=== PATIENT | male | born 1985 | race Caucasian/White ===

== ENCOUNTER 2018-01-18 01:18 | Emergency (ER) | payer OTHER ==
[2018-01-18] MEDS: AMPICILLIN SOD/SULBACTAM SOD 3 GM in D5W MINI-BAG PLUS 100 ML IV (02:30)
== END 2018-01-18 03:48 | disposition home or self-care (01) ==
LOC: M ED 01:18
DX: S51.852A Open bite of left forearm, initial encounter (principal); W54.0XXA Bitten by dog, initial encounter; Y92.89 Other specified places as the place of occurrence of the external cause; F17.210 Nicotine dependence, cigarettes, uncomplicated; F11.21 Opioid dependence, in remission
CPT/HCPCS: 96374

== ENCOUNTER → 2018-02-23 | Outpatient (CLI) | payer MEDICAID, MEDICARE | LOC: M OUTALCOH 07:53 | DX: F11.20 Opioid dependence, uncomplicated (principal) | CPT/HCPCS: H0001 ==

== ENCOUNTER 2018-03-07 12:52 | Outpatient (RCR) | payer MEDICAID | END 2018-03-21 | LOC: M OUTALCOH 12:52 | DX: F11.20 Opioid dependence, uncomplicated (principal); Z72.0 Tobacco use ==

== ENCOUNTER 2018-03-23 10:15 | Outpatient (RCR) | payer MEDICAID | END 2018-04-21 | LOC: M OUTALCOH 10:15 | DX: F11.20 Opioid dependence, uncomplicated (principal); Z72.0 Tobacco use ==

== ENCOUNTER → 2018-03-30 | Outpatient (REF) | payer MEDICAID | LOC: M LAB REF 09:27 | DX: F11.21 Opioid dependence, in remission (principal) ==

== ENCOUNTER → 2019-01-17 | Outpatient (REF) | payer MEDICAID ==
[~2019-01-17] MED LIST: AUGM500T34 PO
[2019-01-17 17:47] LABS: AMORPHOUS SEDIMENT SMALL (NEGATIVE); APPEARANCE, URINE CLEAR (CLEAR); BACTERIA, URINE AUTO NEGATIVE (NEGATIVE); BILIRUBIN, URINE AUTO NEGATIVE (NEGATIVE); BLOOD, URINE BLOOD NEGATIVE (NEGATIVE); COLOR, URINE YELLOW (YELLOW); GLUCOSE, URINE (UA) AUTO NEGATIVE (NEGATIVE); KETONE, URINE AUTO NEGATIVE (NEGATIVE); LEUKOCYTE ESTERASE, URINE AUTO NEGATIVE (NEGATIVE); MUCUS, URINE SMALL (NEGATIVE); NITRITE, URINE AUTO NEGATIVE (NEGATIVE); PROTEIN, URINE AUTO NEGATIVE (NEGATIVE); RBC, URINE AUTO 2 /HPF (0-3); SPECIFIC GRAVITY URINE AUTO 1.011 (1.002-1.035); SQUAMOUS EPITHELIAL CELL UR AU 0 /HPF (0-6); UROBILINOGEN, URINE AUTO 0.2 mg/dL (0.0-2.0); WBC, URINE AUTO 1 /HPF (0-3)
[2019-01-17 18:36] LABS: BASO % 0.5 % (0.0-1.0); EOS # 0.1 10^3/uL (0.0-0.50); EOS % 1.7 % (0.0-3.0); HEMATOCRIT 43.1 % (42.0-52.0); LYMPH # 2.9 10^3/uL (1.5-4.5); LYMPH % 43.6 % (24.0-44.0); MEAN CORPUSCULAR HGB CONC 32.5 g/dl (32.0-36.5); MEAN CORPUSCULAR VOLUME 95.6 fl (80.0-96.0); MONO # 0.5 10^3/uL (0.0-0.8); MONO % 7.3 % (0.0-5.0); NEUTROPHILS # 3.1 10^3/uL (1.8-7.7); NEUTROPHILS % 46.6 % (36.0-66.0); PLATELET COUNT, AUTOMATED 327 10^3/uL (150-450); RED BLOOD COUNT 4.51 10^6/uL (4.30-6.10); WHITE BLOOD COUNT 6.6 10^3/uL (4.0-10.0)
[2019-01-17 18:48] LABS: ALBUMIN 4.2 GM/DL (3.2-5.2); ALT/SGPT 36 U/L (12-78); BILIRUBIN,TOTAL 0.4 MG/DL (0.2-1.0); BLOOD UREA NITROGEN 8 MG/DL (7-18); CALCIUM LEVEL 9.1 MG/DL (8.5-10.1); CARBON DIOXIDE LEVEL 31 MEQ/L (21-32); CHLORIDE LEVEL 103 MEQ/L (98-107); CHOLESTEROL LEVEL 150 MG/DL (<200); CHOLESTEROL RISK RATIO 4.166 (<5); CREATININE FOR GFR 0.89 MG/DL (0.70-1.30); FREE T4 0.95 NG/DL (0.76-1.46); GLOMERULAR FILTRATION RATE > 60.0 (>60); GLUCOSE, FASTING 72 MG/DL (70-100); HDL CHOLESTEROL 36 MG/DL (>40); LDL CHOLESTEROL 76 MG/DL (<100); NON-HDL-C 114 MG/DL; POTASSIUM SERUM 4.2 MEQ/L (3.5-5.1); SODIUM LEVEL 139 MEQ/L (136-145); TOTAL PROTEIN 7.7 GM/DL (6.4-8.2); TRIGLYCERIDES LEVEL 188 MG/DL (<150)
[2019-01-17 19:19] LABS: HEMOGLOBIN A1c 5.4 %
[2019-01-18 09:15] LABS: TOTAL 25(OH) VITAMIN D 14.8 NG/ML (30.0-100.0)
[2019-01-18 09:16] LABS: HEPATITIS B SURFACE ANTIBODY POSITIVE (POSITIVE)
[2019-01-18 09:26] LABS: HEPATITIS B SURFACE ANTIGEN NEGATIVE (NEGATIVE)
[2019-01-18 09:55] LABS: HIV 1&2 SCREEN CENTAUR NEGATIVE (NEGATIVE)
[2019-01-19 08:33] LABS: HEPATITIS A IgG TOTAL Negative (Negative); HEPATITIS B CORE ANTIBODY IGG Negative (Negative)
[2019-01-20 00:07] LABS: Lyme Disease IgG/IgM Antibodie <0.91 ISR (0.00-0.90); Lyme Disease IgM Ab Quantitati <0.80 index (0.00-0.79)
[2019-01-24 00:06] LABS: HEPATITIS C QUANTITATION 7830 IU/mL (.); HEPATITIS C VIRUS GENOTYPE 1a (.)
== END ==
LOC: M LAB REF 16:48
PROVIDERS: ATTEND Family Medicine
DX: B17.10 Acute hepatitis C without hepatic coma (principal); Z00.01 Encounter for general adult medical examination with abnormal findings

== ENCOUNTER → 2019-02-01 | Outpatient (CLI) | payer OTHER, MEDICAID ==
[2019-02-01 08:31] LABS: HEMATOCRIT 40.3 % (42.0-52.0); HEMOGLOBIN 13.4 g/dl (13.5-17.5); MEAN CORPUSCULAR HGB CONC 33.3 g/dl (32.0-36.5); MEAN CORPUSCULAR VOLUME 93.3 fl (80.0-96.0); PLATELET COUNT, AUTOMATED 300 10^3/uL (150-450); RED BLOOD COUNT 4.32 10^6/uL (4.30-6.10); WHITE BLOOD COUNT 6.5 10^3/uL (4.0-10.0)
[2019-02-01 09:01] LABS: ALBUMIN 3.9 GM/DL (3.2-5.2); ALT/SGPT 57 U/L (12-78); BILIRUBIN,TOTAL 0.3 MG/DL (0.2-1.0); BLOOD UREA NITROGEN 8 MG/DL (7-18); CALCIUM LEVEL 9.2 MG/DL (8.5-10.1); CARBON DIOXIDE LEVEL 31 MEQ/L (21-32); CHLORIDE LEVEL 106 MEQ/L (98-107); GLOMERULAR FILTRATION RATE > 60.0 (>60); GLUCOSE, FASTING 89 MG/DL (70-100); POTASSIUM SERUM 4.9 MEQ/L (3.5-5.1); SODIUM LEVEL 140 MEQ/L (136-145); TOTAL PROTEIN 7.1 GM/DL (6.4-8.2)
[2019-02-01 09:37] LABS: HEPATITIS B SURFACE ANTIGEN NEGATIVE (NEGATIVE)
[2019-02-01 10:05] LABS: HIV 1&2 SCREEN CENTAUR NEGATIVE (NEGATIVE)
[2019-02-01 10:10] LABS: HEPATITIS C VIRUS ABY INDEX > 11.0 INDEX (<0.8)
[2019-02-01 10:56] LABS: CHLAMYDIA DNA AMPLIFICATION NEGATIVE (NEGATIVE); GC DNA AMPLIFICATION NEGATIVE (NEGATIVE)
--- NOTE | 2019-02-01 17:39 | ECGEPIP ---
Stationary ECG Study [facility] Test Date: 2019-02-01 Pat Name: DIDI CARRIZALES Department: Room: - Gender: M Compliance Review Specialist: : [id number] Requested By: Raymond Medrano Order Number: [id number] Reading MD: Omero Phan Measurements Intervals [place] Rate: 59 P: 61 RI: 172 QRS: 56 QRSD: 93 T: 42 QT: 414 QTc: 411 Interpretive Statements Sinus bradycardia Normal EKG Comparison tracing not available Electronically Signed On 02-01-2019 17:39:07 EDT by Omero Phan
== END ==
LOC: M LAB 07:46
PROVIDERS: ATTEND Family Medicine
DX: F11.20 Opioid dependence, uncomplicated (principal)

== ENCOUNTER → 2019-02-01 | Outpatient (CLI) | payer OTHER ==
--- NOTE | 2019-02-01 07:59 | REP ---
Clinical: Hepatitis C. Technique: Real time penny scale ultrasound examination using curved array transducer. Findings: The liver demonstrates coarsened echotexture consistent with hepatocellular disease, but no focal hepatic lesion identified. Pancreas is incompletely evaluated due to interposed bowel gas but visualized portions appear normal. A peripancreatic lymph node is identified measuring 13 mm. Gallbladder is normal and without gallstones, wall thickening, or pericholecystic fluid. No biliary ductal dilatation is appreciated and the common bile duct measures 5.7 mm diameter. The right kidney is normal in reniform shape and measures 10.9 x 6.4 x 4.2 cm. No ascites. Impression: 1. Findings consistent with hepatocellular disease. No focal hepatic lesion identified. Electronically Signed by Jagjit Nina MD 02/01/2019 07:50 A
== END ==
LOC: M RAD 07:08
PROVIDERS: ATTEND Internal Medicine
DX: Z00.01 Encounter for general adult medical examination with abnormal findings (principal); B19.20 Unspecified viral hepatitis C without hepatic coma

== ENCOUNTER → 2019-05-09 | Outpatient (REF) | payer OTHER, MEDICAID ==
[2019-05-12 00:08] LABS: HEPATITIS C QUANTITATION HCV Not Detected IU/mL (.)
== END ==
LOC: M LAB REF 17:22
PROVIDERS: ATTEND Nurse Practitioner Adult Health
DX: Z86.19 Personal history of other infectious and parasitic diseases (principal)

== ENCOUNTER → 2020-10-03 | Outpatient (CLI) | payer MEDICAID | LOC: M OUTALCOH 07:35 | PROVIDERS: ATTEND Psychiatry & Neurology Addiction Medicine | DX: Z13.39 Encounter for screening examination for other mental health and behavioral disorders (principal); F11.20 Opioid dependence, uncomplicated ==

== ENCOUNTER → 2020-10-21 | Outpatient (RCR) | payer MEDICAID | LOC: M OUTALCOH 10-07 14:31 | PROVIDERS: ATTEND Psychiatry & Neurology Addiction Medicine | DX: F11.20 Opioid dependence, uncomplicated (principal); F15.20 Other stimulant dependence, uncomplicated; Z72.0 Tobacco use ==

== ENCOUNTER 2020-11-20 13:00 | Outpatient (RCR) | payer MEDICAID | END 2020-11-21 | LOC: M OUTALCOH 13:00 | PROVIDERS: ATTEND Psychiatry & Neurology Addiction Medicine | DX: F11.20 Opioid dependence, uncomplicated (principal); F15.20 Other stimulant dependence, uncomplicated; Z72.0 Tobacco use ==

== ENCOUNTER 2020-12-18 11:20 | Outpatient (RCR) | payer MEDICAID | END 2020-12-22 | LOC: M OUTALCOH 11:20 | PROVIDERS: ATTEND Psychiatry & Neurology Addiction Medicine | DX: F11.20 Opioid dependence, uncomplicated (principal); F15.20 Other stimulant dependence, uncomplicated; Z72.0 Tobacco use ==

== ENCOUNTER 2021-01-15 14:00 | Outpatient (RCR) | payer MEDICAID | END 2021-01-19 | LOC: M OUTALCOH 14:00 | PROVIDERS: ATTEND Psychiatry & Neurology Addiction Medicine | DX: F11.20 Opioid dependence, uncomplicated (principal); F15.20 Other stimulant dependence, uncomplicated; Z72.0 Tobacco use ==

== ENCOUNTER 2021-02-12 10:33 | Outpatient (RCR) | payer MEDICAID | END 2021-02-19 | LOC: M OUTALCOH 10:33 | PROVIDERS: ATTEND Psychiatry & Neurology Psychiatry | DX: F11.20 Opioid dependence, uncomplicated (principal); F15.20 Other stimulant dependence, uncomplicated; Z72.0 Tobacco use ==

== ENCOUNTER → 2021-03-21 | Outpatient (RCR) | payer MEDICAID | LOC: M OUTALCOH 02-26 02:00 | PROVIDERS: ATTEND Psychiatry & Neurology Psychiatry | DX: F11.20 Opioid dependence, uncomplicated (principal); F15.20 Other stimulant dependence, uncomplicated; Z72.0 Tobacco use ==

== ENCOUNTER 2021-04-18 13:25 | Outpatient (RCR) | payer MEDICAID | END 2021-04-21 | LOC: M OUTALCOH 13:25 | PROVIDERS: ATTEND Psychiatry & Neurology Psychiatry | DX: F11.20 Opioid dependence, uncomplicated (principal); F15.20 Other stimulant dependence, uncomplicated ==

== ENCOUNTER 2021-05-19 13:00 | Outpatient (RCR) | payer MEDICAID | END 2021-05-21 | LOC: M OUTALCOH 13:00 | PROVIDERS: ATTEND Psychiatry & Neurology Psychiatry | DX: F11.20 Opioid dependence, uncomplicated (principal); F15.20 Other stimulant dependence, uncomplicated ==

== ENCOUNTER 2021-06-20 13:10 | Outpatient (RCR) | payer MEDICAID | END 2021-06-21 | LOC: M OUTALCOH 13:10 | PROVIDERS: ATTEND Psychiatry & Neurology Psychiatry | DX: F11.20 Opioid dependence, uncomplicated (principal); F15.20 Other stimulant dependence, uncomplicated; Z72.0 Tobacco use ==

== ENCOUNTER 2021-07-21 13:00 | Outpatient (RCR) | payer MEDICAID | END 2021-07-22 | LOC: M OUTALCOH 13:00 | PROVIDERS: ATTEND Psychiatry & Neurology Psychiatry | DX: F11.20 Opioid dependence, uncomplicated (principal); F15.20 Other stimulant dependence, uncomplicated; Z72.0 Tobacco use ==

== ENCOUNTER 2021-08-18 14:41 | Outpatient (RCR) | payer MEDICAID | END 2021-08-21 | LOC: M OUTALCOH 14:41 | PROVIDERS: ATTEND Psychiatry & Neurology Psychiatry | DX: F11.20 Opioid dependence, uncomplicated (principal); F15.20 Other stimulant dependence, uncomplicated; Z72.0 Tobacco use ==

== ENCOUNTER 2021-09-17 10:45 | Outpatient (RCR) | payer MEDICAID | END 2021-09-21 | LOC: M OUTALCOH 10:45 | PROVIDERS: ATTEND Psychiatry & Neurology Psychiatry | DX: F11.20 Opioid dependence, uncomplicated (principal); F15.20 Other stimulant dependence, uncomplicated; Z72.0 Tobacco use ==

== ENCOUNTER 2021-10-03 08:00 | Outpatient (RCR) | payer MEDICAID | END 2021-10-21 | LOC: M OUTALCOH 08:00 | PROVIDERS: ATTEND Psychiatry & Neurology Psychiatry | DX: F11.20 Opioid dependence, uncomplicated (principal); F15.20 Other stimulant dependence, uncomplicated; Z72.0 Tobacco use ==

== ENCOUNTER 2021-12-01 14:56 | Outpatient (RCR) | payer MEDICAID | END 2021-12-22 | LOC: M OUTALCOH 14:56 | PROVIDERS: ATTEND Psychiatry & Neurology Psychiatry | DX: F11.20 Opioid dependence, uncomplicated (principal); F15.20 Other stimulant dependence, uncomplicated; Z72.0 Tobacco use ==

== ENCOUNTER 2022-01-26 12:54 | Outpatient (RCR) | payer MEDICAID | END 2022-02-19 | LOC: M OUTALCOH 12:54 | PROVIDERS: ATTEND Psychiatry & Neurology Psychiatry | DX: F11.21 Opioid dependence, in remission (principal); F15.21 Other stimulant dependence, in remission; Z72.0 Tobacco use ==

== ENCOUNTER 2022-03-23 13:09 | Outpatient (RCR) | payer MEDICAID | END 2022-04-21 | LOC: M OUTALCOH 13:09 | PROVIDERS: ATTEND Psychiatry & Neurology Psychiatry | DX: F11.21 Opioid dependence, in remission (principal); F15.21 Other stimulant dependence, in remission; Z72.0 Tobacco use ==

== ENCOUNTER 2022-03-23 14:10 | Outpatient (RCR) | payer MEDICAID | END 2022-04-21 | LOC: M OUTALCOH 14:10 | PROVIDERS: ATTEND Psychiatry & Neurology Psychiatry | DX: F11.21 Opioid dependence, in remission (principal); F15.21 Other stimulant dependence, in remission; Z72.0 Tobacco use ==

== ENCOUNTER 2022-04-27 12:46 | Outpatient (RCR) | payer MEDICAID | END 2022-05-21 | LOC: M OUTALCOH 12:46 | PROVIDERS: ATTEND Psychiatry & Neurology Psychiatry | DX: F11.21 Opioid dependence, in remission (principal); F15.21 Other stimulant dependence, in remission; Z72.0 Tobacco use ==

== ENCOUNTER 2022-06-10 12:59 | Outpatient (RCR) | payer MEDICAID | END 2022-06-21 | LOC: M OUTALCOH 12:59 | PROVIDERS: ATTEND Psychiatry & Neurology Psychiatry | DX: F11.21 Opioid dependence, in remission (principal); F15.21 Other stimulant dependence, in remission; Z72.0 Tobacco use ==

== ENCOUNTER 2022-08-06 13:00 | Outpatient (RCR) | payer MEDICAID | END 2022-08-21 | LOC: M OUTALCOH 13:00 | PROVIDERS: ATTEND Psychiatry & Neurology Psychiatry | DX: F11.20 Opioid dependence, uncomplicated (principal); F15.20 Other stimulant dependence, uncomplicated; Z72.0 Tobacco use ==

== ENCOUNTER 2022-09-17 14:09 | Outpatient (RCR) | payer MEDICAID | END 2022-09-21 | LOC: M OUTALCOH 14:09 | PROVIDERS: ATTEND Psychiatry & Neurology Psychiatry | DX: F11.20 Opioid dependence, uncomplicated (principal); F15.20 Other stimulant dependence, uncomplicated; Z72.0 Tobacco use ==

== ENCOUNTER 2022-10-08 13:02 | Outpatient (RCR) | payer MEDICAID | END 2022-10-21 | LOC: M OUTALCOH 13:02 | PROVIDERS: ATTEND Psychiatry & Neurology Psychiatry | DX: F11.21 Opioid dependence, in remission (principal); F15.21 Other stimulant dependence, in remission; Z72.0 Tobacco use ==

== ENCOUNTER 2022-10-29 14:45 | Outpatient (RCR) | payer MEDICAID | END 2022-11-21 | LOC: M OUTALCOH 14:45 | PROVIDERS: ATTEND Psychiatry & Neurology Psychiatry | DX: F11.21 Opioid dependence, in remission (principal); F15.21 Other stimulant dependence, in remission; Z72.0 Tobacco use ==

== ENCOUNTER 2022-12-10 14:53 | Outpatient (RCR) | payer MEDICAID | END 2022-12-22 | LOC: M OUTALCOH 14:53 | PROVIDERS: ATTEND Psychiatry & Neurology Psychiatry | DX: F11.21 Opioid dependence, in remission (principal); F15.21 Other stimulant dependence, in remission; Z72.0 Tobacco use ==

== ENCOUNTER 2023-02-04 10:58 | Outpatient (RCR) | payer MEDICAID | END 2023-02-19 | LOC: M OUTALCOH 10:58 | PROVIDERS: ATTEND Internal Medicine | DX: F11.21 Opioid dependence, in remission (principal); F15.21 Other stimulant dependence, in remission; Z72.0 Tobacco use ==

== ENCOUNTER 2023-03-04 10:52 | Outpatient (RCR) | payer MEDICAID | END 2023-03-21 | LOC: M OUTALCOH 10:52 | PROVIDERS: ATTEND Internal Medicine | DX: F11.21 Opioid dependence, in remission (principal); F15.21 Other stimulant dependence, in remission; Z72.0 Tobacco use ==

== ENCOUNTER 2023-05-06 13:42 | Outpatient (RCR) | payer MEDICAID | END 2023-05-21 | LOC: M OUTALCOH 13:42 | PROVIDERS: ATTEND Psychiatry & Neurology Psychiatry | DX: F11.21 Opioid dependence, in remission (principal); F15.21 Other stimulant dependence, in remission; Z72.0 Tobacco use ==

== ENCOUNTER 2023-06-03 12:08 | Outpatient (RCR) | payer MEDICAID | END 2023-06-21 | LOC: M OUTALCOH 12:08 | PROVIDERS: ATTEND Psychiatry & Neurology Psychiatry | DX: F11.21 Opioid dependence, in remission (principal); F15.21 Other stimulant dependence, in remission; Z72.0 Tobacco use ==

== ENCOUNTER 2023-07-05 08:49 | Outpatient (RCR) | payer MEDICAID | END 2023-07-22 | LOC: M OUTALCOH 08:49 | PROVIDERS: ATTEND Psychiatry & Neurology Psychiatry | DX: F11.20 Opioid dependence, uncomplicated (principal); F15.20 Other stimulant dependence, uncomplicated; Z72.0 Tobacco use ==

== ENCOUNTER 2023-09-27 10:19 | Outpatient (RCR) | payer MEDICAID | END 2023-10-21 | LOC: M OUTALCOH 10:19 | PROVIDERS: ATTEND Psychiatry & Neurology Child & Adolescent Psychiatry | DX: F11.20 Opioid dependence, uncomplicated (principal); F15.20 Other stimulant dependence, uncomplicated; Z72.0 Tobacco use ==

== ENCOUNTER 2023-11-09 09:30 | Outpatient (RCR) | payer MEDICAID | END 2023-11-21 | LOC: M OUTALCOH 09:30 | PROVIDERS: ATTEND Psychiatry & Neurology Child & Adolescent Psychiatry | DX: F11.20 Opioid dependence, uncomplicated (principal); F15.20 Other stimulant dependence, uncomplicated; Z72.0 Tobacco use ==

== ENCOUNTER 2023-12-21 09:26 | Outpatient (RCR) | payer MEDICAID | END 2023-12-22 | LOC: M OUTALCOH 09:26 | PROVIDERS: ATTEND Psychiatry & Neurology Child & Adolescent Psychiatry | DX: F11.20 Opioid dependence, uncomplicated (principal); F15.20 Other stimulant dependence, uncomplicated; Z72.0 Tobacco use ==

== ENCOUNTER 2023-12-27 08:51 | Outpatient (RCR) | payer MEDICAID | END 2024-01-20 | LOC: M OUTALCOH 08:51 | PROVIDERS: ATTEND Psychiatry & Neurology Child & Adolescent Psychiatry | DX: F11.20 Opioid dependence, uncomplicated (principal); F15.20 Other stimulant dependence, uncomplicated; Z72.0 Tobacco use ==

== ENCOUNTER 2024-01-24 08:48 | Outpatient (RCR) | payer MEDICAID | END 2024-02-20 | LOC: M OUTALCOH 08:48 | PROVIDERS: ATTEND Psychiatry & Neurology Child & Adolescent Psychiatry | DX: F11.20 Opioid dependence, uncomplicated (principal); F15.20 Other stimulant dependence, uncomplicated; Z72.0 Tobacco use ==

== ENCOUNTER 2024-02-21 09:26 | Outpatient (RCR) | payer MEDICAID | END 2024-03-21 | LOC: M OUTALCOH 09:26 | PROVIDERS: ATTEND Psychiatry & Neurology Psychiatry | DX: F11.20 Opioid dependence, uncomplicated (principal); F15.20 Other stimulant dependence, uncomplicated; Z72.0 Tobacco use ==

== ENCOUNTER 2024-03-27 09:53 | Outpatient (RCR) | payer MEDICAID | END 2024-04-21 | LOC: M OUTALCOH 09:53 | PROVIDERS: ATTEND Psychiatry & Neurology Child & Adolescent Psychiatry | DX: F11.20 Opioid dependence, uncomplicated (principal); F15.20 Other stimulant dependence, uncomplicated; Z72.0 Tobacco use ==

== ENCOUNTER 2024-05-08 08:45 | Outpatient (RCR) | payer MEDICAID | END 2024-05-21 | LOC: M OUTALCOH 08:45 | PROVIDERS: ATTEND Psychiatry & Neurology Psychiatry | DX: F11.20 Opioid dependence, uncomplicated (principal); F15.20 Other stimulant dependence, uncomplicated; Z72.0 Tobacco use ==

== ENCOUNTER 2024-06-05 09:27 | Outpatient (RCR) | payer MEDICAID | END 2024-06-21 | LOC: M OUTALCOH 09:27 | PROVIDERS: ATTEND Psychiatry & Neurology Child & Adolescent Psychiatry | DX: F11.20 Opioid dependence, uncomplicated (principal); F15.20 Other stimulant dependence, uncomplicated; Z72.0 Tobacco use ==

== ENCOUNTER → 2024-08-21 | Outpatient (RCR) | payer MEDICAID | LOC: M OUTALCOH 10:43 | PROVIDERS: ATTEND Psychiatry & Neurology Psychiatry | DX: F11.21 Opioid dependence, in remission (principal); F15.21 Other stimulant dependence, in remission; Z72.0 Tobacco use ==

== ENCOUNTER 2024-09-25 10:45 | Outpatient (RCR) | payer MEDICAID | END 2024-10-21 | LOC: M OUTALCOH 10:45 | PROVIDERS: ATTEND Psychiatry & Neurology Psychiatry | DX: F11.20 Opioid dependence, uncomplicated (principal); F15.20 Other stimulant dependence, uncomplicated; Z72.0 Tobacco use ==

== ENCOUNTER 2024-10-25 09:35 | Outpatient (RCR) | payer MEDICAID | END 2024-11-21 | LOC: M OUTALCOH 09:35 | PROVIDERS: ATTEND Psychiatry & Neurology Psychiatry | DX: F11.21 Opioid dependence, in remission (principal); F15.21 Other stimulant dependence, in remission; Z72.0 Tobacco use ==

== ENCOUNTER 2024-11-27 09:47 | Outpatient (RCR) | payer MEDICAID | END 2024-12-22 | LOC: M OUTALCOH 09:47 | PROVIDERS: ATTEND Psychiatry & Neurology Psychiatry | DX: F11.20 Opioid dependence, uncomplicated (principal); F15.20 Other stimulant dependence, uncomplicated; Z72.0 Tobacco use ==

== ENCOUNTER 2025-01-01 09:11 | Outpatient (RCR) | payer OTHER | END 2025-01-19 | LOC: M OUTALCOH 09:11 | PROVIDERS: ATTEND Psychiatry & Neurology Psychiatry | DX: F11.21 Opioid dependence, in remission (principal); F15.21 Other stimulant dependence, in remission; Z72.0 Tobacco use ==

== ENCOUNTER 2025-01-29 09:14 | Outpatient (RCR) | payer MEDICAID | END 2025-02-19 | LOC: M OUTALCOH 09:14 | PROVIDERS: ATTEND Psychiatry & Neurology Psychiatry | DX: F11.21 Opioid dependence, in remission (principal); F15.21 Other stimulant dependence, in remission; Z72.0 Tobacco use ==

== ENCOUNTER 2025-02-26 09:58 | Outpatient (RCR) | payer MEDICAID | END 2025-03-21 | LOC: M OUTALCOH 09:58 | PROVIDERS: ATTEND Psychiatry & Neurology Psychiatry | DX: F11.21 Opioid dependence, in remission (principal); F15.21 Other stimulant dependence, in remission; Z72.0 Tobacco use ==

== ENCOUNTER 2025-06-18 09:31 | Outpatient (RCR) | payer MEDICAID | END 2025-06-21 | LOC: M OUTALCOH 09:31 | PROVIDERS: ATTEND Psychiatry & Neurology Psychiatry | DX: F11.21 Opioid dependence, in remission (principal); F15.21 Other stimulant dependence, in remission; Z72.0 Tobacco use ==

== ENCOUNTER 2025-08-06 08:58 | Outpatient (RCR) | payer MEDICAID | END 2025-08-21 | LOC: M OUTALCOH 08:58 | PROVIDERS: ATTEND Psychiatry & Neurology Psychiatry | DX: F11.21 Opioid dependence, in remission (principal); F15.21 Other stimulant dependence, in remission; Z72.0 Tobacco use ==

== ENCOUNTER 2025-09-03 10:28 | Outpatient (RCR) | payer MEDICAID | END 2025-09-21 | LOC: M OUTALCOH 10:28 | PROVIDERS: ATTEND Psychiatry & Neurology Psychiatry | DX: F11.21 Opioid dependence, in remission (principal); F15.21 Other stimulant dependence, in remission; Z72.0 Tobacco use ==

== ENCOUNTER 2025-11-19 10:23 | Outpatient (RCR) | payer MEDICAID | END 2025-11-21 | LOC: M OUTALCOH 10:23 | PROVIDERS: ATTEND Psychiatry & Neurology Psychiatry | DX: F11.21 Opioid dependence, in remission (principal); F15.21 Other stimulant dependence, in remission; Z72.0 Tobacco use ==